=== PATIENT | female | born 1960 | race Caucasian/White ===

== ENCOUNTER 2017-04-03 09:23 | Day surgery (SDC) | payer BC ==
[~2017-04-03] VITALS: Ht 170.2 cm; Wt 126.1 kg
[~2017-04-03 09:23] MED LIST: BUPIVACAINE-EPI 0.5%-1:200000 50 ML VIAL. ONE; HYDROmorphone 2 MG/ML VIAL IV PRN; IOHEXOL 300 MG/ML 50 ML VIAL. ONE; IV RINGERS,LACTATED 1000ML 1,000 ML IV SCH; LEVO112T4 PO; LIDOCAINE 1% PF 2 ML VIAL. ID PRN; MORPHINE SULFATE 4 MG/ML DISP.SYRIN. IV PRN; ONDANSETRON PF 4 MG/2 ML VIAL. IV PRN; PROCHLORPERAZINE 10 MG/2 ML VIAL. IV PRN; QUIN1TAB15 PO; SURGICEL HEMOSTAT 4X8 EACH. ONE; fentaNYL PF VIAL 100 MCG/2 ML VIAL IV PRN
[2017-04-03] MEDS ORDERED: SEVOFLURANE 61 TO 120 MINUTES. IH ONE (09:32)
[2017-04-03] MEDS ORDERED: fentaNYL PF VIAL 100 MCG/2 ML VIAL ONE ×2 (09:33→11:58)
[2017-04-03] MEDS ORDERED: MIDAZOLAM HCL/PF 2 MG/2 ML VIAL. ONE (09:33)
[2017-04-03] MEDS ORDERED: ROCURONIUM 100 MG/10 ML VIAL. ONE (09:33)
[2017-04-03] MEDS ORDERED: GLYCOPYRROLATE 1 MG/5 ML VIAL. ONE (09:34)
[2017-04-03] MEDS ORDERED: NEOSTIGMINE METHYLSULFATE 5 MG/5 ML SYRINGE. ONE (09:34)
[2017-04-03] MEDS ORDERED: KETOROLAC 30 MG/ML INJ FOR OR. INJ ONE (09:35)
[2017-04-03] MEDS ORDERED: DEXAMETHASONE SOD PHOS 20 MG/5 ML VIAL. ONE (09:35)
[2017-04-03] MEDS ORDERED: ONDANSETRON PF 4 MG/2 ML VIAL. ONE (09:35)
[2017-04-03] MEDS ORDERED: PROPOFOL 20 ML IV ONE (09:35)
[2017-04-03] MEDS ORDERED: LIDOCAINE 2% PF Vial for OR 5 ML VIAL. ONE (09:35)
[2017-04-03] MEDS ORDERED: PHENYLEPHRINE in 0.9% NACL PF 1 MG/10 ML DISP.SYRIN. IV ONE (12:03)
[2017-04-03] MEDS ORDERED: ePHEDrine PF IN SALINE 50 MG/5 ML DISP.SYRIN IV ONE (12:06)
--- NOTE | 2017-04-03 12:20 | RAD ---
Intraoperative cholangiogram, 04/03/2017: History: Cholecystectomy 3 spot films from surgery are presented for review. Contrast has been injected into the cystic duct remnant. 0.4 minutes of fluoroscopy time was utilized. There is good flow of contrast into the duodenum at the ampulla. No filling defect is seen in the common duct to suggest a retained calculus. The incompletely opacified intrahepatic ducts are unremarkable. No contrast extravasation is seen. IMPRESSION: No significant abnormality is detected.
[2017-04-03] MEDS ORDERED: VASOPRESSIN 20 UNIT/ML VIAL. ONE (12:23)
--- NOTE | 2017-04-03 12:50 | PDOC4 ---
Operative Note Operative Note Operative Note: Preoperative Diagnosis: Symptomatic cholelithiasis Postoperative Diagnosis: Same Procedure: Laparoscopic cholecystectomy with intraoperative cholangiogram Surgeons: Alexis Asst: Tamiko MCNAMARA Anesthesia: Gen. Estimated Blood Loss: 10 mL Specimen: Gallbladder to pathology Drains: None Complications: None Indications: The patient is a 56 year old female who is been experiencing recurrent upper abdominal pain consistent with biliary colic. Her evaluation identified gallstones. Surgical treatment was offered by means of a laparoscopic cholecystectomy. The risks of surgery were discussed which include bleeding, infection, bile duct injury, bile leak, pain, the potential for additional surgeries or procedures. The patient understands and would like to proceed. Description: The patient was taken to the operating room and laid supine on the operating table. General anesthesia was performed. The abdomen was prepped with ChloraPrep and draped in a standard surgical fashion. A small right abdominal incision was made with a scalpel. A visualized 5 mm trocar was then inserted and a pneumoperitoneum was developed. The laparoscope was then introduced. Initial inspection showed no visceral injury or bleeding. There were some adhesions near the mid abdomen involving omentum likely from prior surgery. In the upper midabdomen a 5 mm trocar was inserted and in the right upper quadrant one 2.3 mm mini lap grasper and one 5 mm trocar were inserted. The gallbladder was retracted cephalad. The cystic duct was dissected free from surrounding tissues. One clip was placed on the duct near the gallbladder junction. An opening was made in the duct and a cholangiocatheter placed within and secured with a clip. Using contrast dye and fluoroscopy an intraoperative cholangiogram was performed that appeared unremarkable. The clip and catheter were then withdrawn. Three clips were placed on the cystic duct and it was divided. The cystic artery was then identified, dissected free , doubly clipped and divided as well. The gallbladder was then mobilized away from the liver with cautery. The superior abdominal 5 millimeter trocar was exchanged for an 11 millimeter trocar. The gallbladder was then placed in an endoscopic bag and extracted at the umbilical trocar site. The skin incision had to be extended a short amount due to the size of a large gallstone. The fascia there was closed with an 0 Vicryl suture. All blood and irrigation fluid was suctioned and hemostasis was good. The remaining ports were removed and the pneumoperitoneum was relieved. The skin incisions were injected with half percent Marcaine with epinephrine, and all were closed using 4-0 Monocryl suture. Steri-Strips and dressings were then applied. The patient tolerated the procedure well and was sent to the recovery room in stable condition. At the end of the case all counts were correct. IVANA TORRES MD Apr 03, 2017 12:50
--- NOTE | 2017-04-03 12:52 | DISCH ---
DISCHARGE INSTRUCTIONS Condition on Discharge Condition on Discharge: Stable Activity After Discharge Activity Instructions for Disc: Other, see below (no lifting over 20 lbs) Diet after Discharge Diet after Discharge: Regular Wound Incision Care Wound/Incision Care: Other, see below (may remove bandaids tomorrow and shower) Follow-Up Follow up with: Dr Torres in 2 weeks, call for appt [phone] IVANA TORRES MD Apr 03, 2017 12:52
[2017-04-03] MEDS ORDERED: HYDR-2758 PO (13:38)
[2017-04-03] MEDS ORDERED: OXYC-323 PO (13:39)
[2017-04-03] MEDS ORDERED: oxyCODONE/APAP 5/325 1 TAB TABLET PO SCH (14:00)
[2017-04-03 14:16] VITALS: BP 140/75
[2017-04-03] MEDS ORDERED: oxyCODONE/APAP 5/325 1 TAB TABLET PO PRN (14:30)
--- NOTE | 2017-04-07 12:47 | PATHOLOGY ---
PATHOLOGY REPORT * * * * * * * * FINAL DIAGNOSIS: Gallbladder, laparoscopic cholecystectomy: - Cholelithiasis. - Cholesterolosis, focal. - Chronic cholecystitis. COMMENT: There is no evidence of malignancy. (JPM:mgolga; 04/07/2017) REPORT ELECTRONICALLY SIGNED BY: Hakan Hunter M.D. DATE/TIME: 04/07/2017 12:46 * * * * * * * * GROSS PATHOLOGY: Received in formalin labeled "Lesli Cano, gallbladder with contents," is a 6.6 x 3.1 x 2.4 cm, intact gallbladder with light dalton to finn, wrinkled serosal surfaces. Opening the gallbladder reveals light finn, grainy mucosa and an average wall thickness of 0.2 cm. Calculi are present, measuring 4.1 x 2.5 x 2.0 cm in maximum dimension, possessing a dark finn color, and feeling firm to the touch. No masses are noted grossly. Business Services Director sections from the body and fundus are submitted along with the proximal margin in cassette A1. (TSD; 04/04/2017) INITIAL CPT CODE(S): A; 94656 Professional services performed [place] [facility] [place] [address] Technical services performed by [facility] at [address] [place] [address], [facility] [address], [place] [address]. SPECIMEN(S) RECEIVED: A.Gallbladder with contents CLINICAL HISTORY: Symptomatic cholelithiasis PATIENT: LESLI CANO /AGE: 1105/10/1960 (Age: 56) PATIENT #: [id number] ALT CASE #: SPECIMEN COLLECTION DATE: 04/03/2017 SPECIMEN RECEIVED DATE: 04/03/2017 [facility] - [id number] [place] [address] - PHONE: [phone] * * * END OF REPORT * * *
== END 2017-04-03 14:55 | disposition home or self-care (01) ==
LOC: SURG 09:23
PROVIDERS: ATTEND Surgery
DX: K80.20 Calculus of gallbladder without cholecystitis without obstruction (principal); E78.00 Pure hypercholesterolemia, unspecified; I10 Essential (primary) hypertension; E66.9 Obesity, unspecified; Z68.41 Body mass index [BMI] 40.0-44.9, adult; K21.9 Gastro-esophageal reflux disease without esophagitis; E03.9 Hypothyroidism, unspecified; M19.91 Primary osteoarthritis, unspecified site; Z90.710 Acquired absence of both cervix and uterus; Z87.891 Personal history of nicotine dependence; Z98.890 Other specified postprocedural states; Z86.39 Personal history of other endocrine, nutritional and metabolic disease; Z87.39 Personal history of other diseases of the musculoskeletal system and connective tissue
CPT/HCPCS: 47563; 74300; C1769; J0690; J1100; J1885; J2250; J2370; J2405; J2704; J2710; J3010; J3490; J7030; J7120; Q9967; J2001